=== PATIENT | male | born 1995 | race Caucasian/White ===

== ENCOUNTER 2020-11-05 14:24 | Emergency (ER) | payer OTHER, SELFPAY ==
[2020-11-05 14:38] VITALS: BP 120/80; PULSE 84; RESP 16; TEMP 37.1; O2SAT 98
--- NOTE | 2020-11-05 15:19 | ED.GENADULT ---
HPI - General Adult General Chief complaint: Upper Respiratory Infection Stated complaint: needs covid test Time Seen by Provider: 11/05/20 15:02 Source: patient and RN notes reviewed Mode of arrival: ambulatory Limitations: no limitations History of Present Illness HPI narrative: Patient presents today requesting a rapid Covid test. Patient works at the [employer] and was exposed to his boss 3 days ago, who he found out today is COVID-19 positive. Patient has no symptoms. His employer is requesting he get a rapid Covid test today. Patient is a non-smoker. MD complaint: COVID-19 exposure Related Data Home Medications Medication Instructions Recorded Confirmed No Home Medications 11/05/20 11/05/20 Allergies Allergy/AdvReac Type Severity Reaction Status Date / Time No Known Allergies Allergy Verified 11/05/20 14:47 Review of Systems Review of Systems: Narrative: CONSTITUTIONAL: Denies body aches, fever, chills, or sweats. EYES: Denies visual changes, redness, or discharge. ENT: Denies rhinorrhea, congestion, sore throat, or otalgia. No loss of taste or smell. CARDIOVASCULAR: Denies chest pain, palpitations, or edema. RESPIRATORY: Denies cough or dyspnea. GASTROINTESTINAL: Denies abdominal pain, nausea, vomiting, or diarrhea. GENITOURINARY: Denies dysuria or hematuria. SKIN: Denies rash, itching, or wounds. MUSCULOSKELETAL: Denies back pain, joint pain, or myalgia. NEUROLOGIC: Denies headache, numbness, tingling, or weakness. PSYCH: Denies depression or anxiety. [facility] Social History Social History Smoking status: Never smoker Comments At time of signature, I have reviewed and agree with nursing past medical, surgical, social and family history unless otherwise noted. Please see nursing chart for further information. There is no relevant family history pertinent to the presenting complaint Exam Narrative: Exam Narrative: GENERAL: Well-appearing, well-nourished, and in no acute distress. HEAD: Normocephalic, atraumatic. EYES: EOMI. No redness or drainage. Conjunctivae normal. ENT: Mucous membranes pink and moist. Nares clear. No rhinorrhea. TMs normal bilaterally. Throat normal. Uvula midline. NECK: Normal AROM. Supple. No lymphadenopathy. CHEST: No respiratory distress. Clear to auscultation. HEART: Regular rate and rhythm. No murmur appreciated. Normal peripheral pulses. EXTREMITIES: Normal range of motion. No edema. SKIN: Warm, dry, no rash. Capillary refill normal. Normal skin turgor. NEURO: No focal deficits. Alert and oriented x3. Gait steady. PSYCH: Normal affect. No signs of depression or anxiety. Course Vital Signs Vital signs: Vital Signs Temperature 98.8 F 11/05/20 14:38 Pulse Rate 84 11/05/20 14:38 Respiratory Rate 16 11/05/20 14:38 Blood Pressure 120/80 11/05/20 14:38 Pulse Oximetry 98 11/05/20 14:38 Temperature 98.8 F 11/05/20 14:38 Pulse Rate 84 11/05/20 14:38 Respiratory Rate 16 11/05/20 14:38 Blood Pressure 120/80 11/05/20 14:38 Pulse Oximetry 98 11/05/20 14:38 Reviewed Medical Decision Making Differential Diagnosis Differential Diagnosis: COVID-19, COVID-19 exposure Vital Signs Vital Signs: Vital Signs Temperature 98.8 F 11/05/20 14:38 Pulse Rate 84 11/05/20 14:38 Respiratory Rate 16 11/05/20 14:38 Blood Pressure 120/80 11/05/20 14:38 Pulse Oximetry 98 11/05/20 14:38 Temperature 98.8 F 11/05/20 14:38 Pulse Rate 84 11/05/20 14:38 Respiratory Rate 16 11/05/20 14:38 Blood Pressure 120/80 11/05/20 14:38 Pulse Oximetry 98 11/05/20 14:38 Lab Data Lab results reviewed: Yes I reviewed the patient's lab results. Labs: Lab Results 11/05/20 Range/Units 14:44 POC SARS CoV-2 Ag Negative (Negative) Critical Care Time Critical Care Time Critical Care Time: No Discharge Plan Discharge Clinical Impression: Lab test n
== END 2020-11-05 15:27 | disposition home or self-care (01) ==
PROVIDERS: Emergency Provider Nurse Practitioner
DX: Z20.822 Contact with and (suspected) exposure to COVID-19 (principal)
CPT/HCPCS: 87426; 99213; C9803; G0463

== ENCOUNTER 2021-08-24 08:12 | Emergency (ER) | payer OTHER, SELFPAY ==
--- NOTE | 2021-08-24 08:21 | ED.URI ---
HPI - URI/Sore Throat General Chief Complaint: Upper Respiratory Infection Stated Complaint: sore throat Time Seen by Provider: 08/24/21 08:29 Source: patient and RN notes reviewed Mode of arrival: ambulatory Limitations: no limitations History of Present Illness HPI Narrative: 26-year-old male presents with concern for sore throat. Reports sore throat for the past 3 days, he has been using ibuprofen and salt water gargles. He denies rhinorrhea, nasal congestion, headache, body aches, chills, sweats, cough, nausea. MD elicited complaint: sore throat Related Data Allergies Allergy/AdvReac Type Severity Reaction Status Date / Time No Known Allergies Allergy Verified 08/24/21 08:26 Review of Systems Review of Systems: CONSTITUTIONAL: Denies malaise, chills, sweats, or fever. EYES: Denies visual changes, redness, or discharge. ENT: Denies rhinorrhea, congestion, sinus pain, otalgia. Reports sore throat. CARDIOVASCULAR: Denies chest pain, palpitations, or edema. RESPIRATORY: Denies cough. Denies dyspnea. GASTROINTESTINAL: Denies abdominal pain, nausea, vomiting, diarrhea SKIN: Denies rash or itching. MUSCULOSKELETAL: Denies myalgia. NEUROLOGIC: Denies headache. All systems reviewed & are unremarkable except as noted in HPI and below PMFSH Social History Social History Smoking status: Never smoker Comments At time of signature, agree with nursing past medical, surgical, social and family history. There is no relevant family history pertinent to the presenting complaint Exam Narrative: GENERAL: Well-appearing, well-nourished, and in no acute distress. HEAD: Normocephalic EYES: PERRLA, conjunctivae clear ENT: Nares clear. Mucous membranes moist. TM pearly farrar with sharp light reflex bilaterally; no tragal tenderness, chronic deformity with right TM. Oropharynx mildly erythematous with aphthous ulcer noted posteriorly. Tonsils not enlarged and without exudate, no drooling, no hoarseness, no trismus, uvula midline. NECK: Supple. No lymphadenopathy CHEST: Clear to auscultation, breath sounds equal. No wheezing, rhonchi, rales, or stridor. No respiratory distress, speaks in full sentences. HEART: Regular rate and rhythm. No murmur heard. SKIN: Warm, dry, no rash. NEURO: Alert and oriented x3. PSYCH: Normal mood and affect Course Course Emergency Course: Patient is aware of diagnosis, understands and agrees to treatment plan. Anticipatory guidance given. Patient agrees to follow-up as directed and is aware of reasons to seek care at the emergency department. Portions of this record may have been created with voice recognition software Vital Signs Vital signs: Reviewed. MDM - URI/Sore Throat MDM Narrative Medical decision making narrative: Differential diagnosis considered: Christensen virus, strep pharyngitis, allergic rhinitis, upper respiratory tract infection, sinusitis, rhinosinusitis, nasopharyngitis. viral pharyngitis, otitis media, otitis externa, pneumonia, bronchitis, viral cough syndrome, viral syndrome, and influenza. Exam findings show no acute concerns or changes; patient is non-toxic appearing and is in no distress. Patient is appropriate for outpatient treatment and follow-up. Critical Care Time Critical Care Time Critical Care Time: No Discharge Plan Discharge Clinical Impression: Aphthous ulcer of pharynx or hypopharynx Patient Disposition: Home, Self-Care Condition: Stable Instructions: Canker Sores (ED) Additional Instructions: Your rapid strep swab was negative today at [facility]. A throat culture will be sent to the laboratory for further testing. If the test is positive, you will receive a phone call within 48 hours and an appropriate antibiotic will be initiated at that time. -Use prescribed solution for pain relief -Alternate Tylenol and Motrin per package directions for fever or pain. -Eat and drink things that are easy to s
[2021-08-24 08:22] VITALS: BP 139/88; PULSE 72; RESP 16; TEMP 37.3; O2SAT 100
== END 2021-08-24 08:45 | disposition home or self-care (01) ==
PROVIDERS: Emergency Provider Nurse Practitioner
DX: K12.0 Recurrent oral aphthae (principal)
CPT/HCPCS: 87081; 87880; 99213; G0463

== ENCOUNTER 2023-02-27 10:36 | Emergency (ER) | payer OTHER, SELFPAY ==
[2023-02-27 10:42] VITALS: BP 144/95; PULSE 78; RESP 16; TEMP 36.6; O2SAT 100
--- NOTE | 2023-02-27 11:05 | ED.EAR ---
HPI - Ear Problem General Chief complaint: Ear Stated complaint: right ear Source: patient and RN notes reviewed Limitations: no limitations History of Present Illness HPI Narrative: Patient is a 27-year-old male who presents to the [facility] with right ear pain for the past 2 days. Patient states he has also noticed ear drainage each morning. He denies sore throat, congestion, cough. Denies recent fevers or chills. Patient states that he had similar pain last year around this time with a left ear infection. States that at that time he was placed on oral antibiotics and had follow-up with ENT due to ongoing muffled hearing. States that he was also put on drops, which resolved his symptoms. 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 States that his left TM healed normally, but his right did not. Related Data Allergies Allergy/AdvReac Type Severity Reaction Status Date / Time No Known Allergies Allergy Verified 02/27/23 10:45 Review of Systems Review of Systems: CONSTITUTIONAL: Denies fever, chills, or sweats. EYES: Denies visual changes, redness, or discharge. ENT: Denies sore throat. Reports right ear pain. CARDIOVASCULAR: Denies chest pain, palpitations, or edema. RESPIRATORY: Denies cough or dyspnea. GASTROINTESTINAL: Denies abdominal pain, nausea, vomiting, or diarrhea. GENITOURINARY: Denies dysuria or hematuria. SKIN: Denies rash or itching. MUSCULOSKELETAL: Denies back pain, joint pain, or myalgia. NEUROLOGIC: Denies headache, numbness, or weakness. Pertinent positives per HPI. PMFSH Social History Social History Smoking status: Never smoker Comments At the time of my signature, I reviewed and agree with the nursing past medical, surgical, social, and family history. There is no relevant family history pertinent to the patient complaint. Exam Narrative: GENERAL: This is a well-nourished, well-developed patient, in no apparent distress. HEAD: normocephalic, atraumatic. EYES: Sclera clear/white. Vision is grossly intact. EARS: External ears normal. Left TMs normal without perforation. Right TM abnormality noted (which patient states is chronic). Erythematous TM with perforation. Reports muffled earing out of right ear. NOSE: External nose normal with no obvious nasal discharge, nares without redness, no rhinorrhea. THROAT: Mucous membranes moist, posterior pharynx clear. NECK: Neck supple, non-tender without lymphadenopathy, masses or thyromegaly. CARDIOVASCULAR: Regular rate and rhythm without murmurs, gallops, or rubs. RESPIRATORY: Clear to auscultation. Breath sounds equal bilaterally. No wheezes, rales, or rhonchi. GASTROINTESTINAL: Abdomen soft, non-tender, nondistended. Bowel sounds are active. No hepato-splenomegaly, or palpable masses. No guarding. SKIN: warm, intact with no suspicious lesions or rash, good texture and turgor. NEURO: awake, alert, and oriented to person, place and time. There were no obvious focal neurologic abnormalities. Course Course Level of Care: Express Care Visit Vital Signs Vital signs: Vital Signs Temperature 97.9 F 02/27/23 10:42 Pulse Rate 78 02/27/23 10:42 Respiratory Rate 16 02/27/23 10:42 Blood Pressure 144/95 H 02/27/23 10:42 Pulse Oximetry 100 02/27/23 10:42 Oxygen Delivery Room Air 02/27/23 10:42 Temperature 97.9 F 02/27/23 10:42 Pulse Rate 78 02/27/23 10:42 Respiratory Rate 16 02/27/23 10:42 Blood Pressure 144/95 H 02/27/23 10:42 Pulse Oximetry 100 02/27/23 10:42 Oxygen Delivery Room Air 02/27/23 10:42 Reviewed Medical Decision Making MDM Narrative Medical decision making narrative: Take antibiotics as directed. May given ibuprofen and/or Tylenol as needed for pain and/or fever. Follow up with primary care provider in 7-10 days to have ear rechecked. -Ear drops as directed for 7-10 days until the pain
== END 2023-02-27 11:10 | disposition home or self-care (01) ==
PROVIDERS: Emergency Provider Nurse Practitioner; PCP Family Medicine
DX: H66.91 Otitis media, unspecified, right ear (principal)
CPT/HCPCS: 99213; G0463